=== PATIENT | male | born 1950 | race Caucasian/White ===

== ENCOUNTER 2018-02-19 08:36 | Emergency (ER) | payer MEDICARE ==
[~2018-02-19] VITALS: Ht 167.6 cm; Wt 72.6 kg
[~2018-02-19 08:36] MED LIST: Bactrim Ds Tab1 EACH PO; CEPH500 PO; Cleocin HCl300 MG PO; HYDACE5 PO; Percocet 5-3251 EACH PO; SULTRIDS PO
[2018-02-19] MEDS ORDERED: Amoxicillin500 MG PO (09:07)
[2018-02-19] MEDS ORDERED: IBUP800 PO (09:07)
== END 2018-02-19 09:55 | disposition home or self-care (01) ==
LOC: ER 08:36
DX: K04.7 Periapical abscess without sinus (principal); F17.200 Nicotine dependence, unspecified, uncomplicated
CPT/HCPCS: 96372; 96374; 99283-25; J0561; J1100

== ENCOUNTER 2018-02-23 14:18 | Emergency (ER) | payer MEDICARE ==
[~2018-02-23] VITALS: Ht 167.6 cm; Wt 68.0 kg
[~2018-02-23 14:18] MED LIST changes: +Amoxicillin500 MG PO; +IBUP800 PO
[2018-02-23] MEDS ORDERED: Percocet 5-3251 EACH PO (15:14)
[2018-02-23] MEDS ORDERED: TAMS.4ER PO (23:27)
[2018-02-23] MEDS ORDERED: METO50ER PO (23:27)
[2018-02-23] MEDS ORDERED: LEVSOD150 PO (23:27)
[2018-02-24] MEDS ORDERED: Cleocin HCl150 MG PO
[2018-02-24] MEDS ORDERED: CLINDAMYCI600 MG/51 IV (10:02)
== END 2018-02-23 15:43 | disposition home or self-care (01) ==
LOC: ER 14:18
DX: K04.7 Periapical abscess without sinus (principal); I10 Essential (primary) hypertension; E03.9 Hypothyroidism, unspecified; F17.200 Nicotine dependence, unspecified, uncomplicated
CPT/HCPCS: 96365; 96375; 99282-25; J1885

== ENCOUNTER 2018-02-23 22:48 | Emergency (ER) | payer MEDICARE ==
[~2018-02-23] VITALS: Ht 167.6 cm; Wt 72.1 kg
[2018-02-23] MEDS ORDERED: METO50ER PO (23:27)
[2018-02-23] MEDS ORDERED: TAMS.4ER PO (23:27)
[2018-02-23] MEDS ORDERED: LEVSOD150 PO (23:27)
[2018-02-24] MEDS ORDERED: Cleocin HCl150 MG PO
[2018-02-24] MEDS ORDERED: CLINDAMYCI600 MG/51 IV (10:02)
[2018-02-25] MEDS ORDERED: Cleocin HCl300 MG PO (00:01)
== END 2018-02-24 00:30 | disposition home or self-care (01) ==
LOC: ER 22:48
DX: K04.7 Periapical abscess without sinus (principal); I10 Essential (primary) hypertension; E03.9 Hypothyroidism, unspecified; F17.200 Nicotine dependence, unspecified, uncomplicated; Z79.899 Other long term (current) drug therapy

== ENCOUNTER 2018-02-24 08:26 | Day surgery (SDC) | payer MEDICARE ==
[~2018-02-24 08:26] MED LIST changes: +Cleocin HCl150 MG PO; +LEVSOD150 PO; +METO50ER PO; +TAMS.4ER PO
[2018-02-24] MEDS ORDERED: CLINDAMYCI600 MG/51 IV (10:02)
[2018-02-25] MEDS ORDERED: Cleocin HCl300 MG PO (00:01)
== END 2018-02-24 17:11 | disposition home or self-care (01) ==
LOC: ATC 08:26
DX: K04.7 Periapical abscess without sinus (principal); I10 Essential (primary) hypertension
CPT/HCPCS: 96365

== ENCOUNTER 2018-02-24 23:30 | Emergency (ER) | payer MEDICARE ==
[~2018-02-24] VITALS: Ht 167.6 cm; Wt 74.4 kg
[~2018-02-24 23:30] MED LIST changes: +CLINDAMYCI600 MG/51 IV
[2018-02-25] MEDS ORDERED: Cleocin HCl300 MG PO (00:01)
== END 2018-02-25 00:40 | disposition home or self-care (01) ==
LOC: ER 23:30
DX: K04.7 Periapical abscess without sinus (principal); Z79.2 Long term (current) use of antibiotics; Z79.899 Other long term (current) drug therapy; I10 Essential (primary) hypertension; E03.9 Hypothyroidism, unspecified; F17.200 Nicotine dependence, unspecified, uncomplicated
CPT/HCPCS: 96365; 99282-25

== ENCOUNTER 2018-02-25 00:06 | Day surgery (SDC) | payer MEDICARE | END 2018-02-25 16:24 | disposition home or self-care (01) | LOC: ATC 00:06 | DX: K04.7 Periapical abscess without sinus (principal); I10 Essential (primary) hypertension; F17.200 Nicotine dependence, unspecified, uncomplicated | CPT/HCPCS: 96365 ==

== ENCOUNTER 2018-02-25 23:32 | Emergency (ER) | payer MEDICARE ==
[~2018-02-25] VITALS: Ht 170.2 cm; Wt 74.4 kg
== END 2018-02-26 00:25 | disposition home or self-care (01) ==
LOC: ER 23:32
DX: K04.7 Periapical abscess without sinus (principal); L03.211 Cellulitis of face; Z79.2 Long term (current) use of antibiotics; Z79.899 Other long term (current) drug therapy; I10 Essential (primary) hypertension; E03.9 Hypothyroidism, unspecified; F17.200 Nicotine dependence, unspecified, uncomplicated
CPT/HCPCS: 96365; 99282-25

== ENCOUNTER 2018-02-26 23:35 | Emergency (ER) | payer MEDICARE ==
[~2018-02-26] VITALS: Ht 170.2 cm; Wt 74.4 kg
== END 2018-02-27 00:38 | disposition home or self-care (01) ==
LOC: ER 23:35
DX: K04.7 Periapical abscess without sinus (principal); L03.211 Cellulitis of face; Z76.0 Encounter for issue of repeat prescription; Z79.2 Long term (current) use of antibiotics; Z79.899 Other long term (current) drug therapy; I10 Essential (primary) hypertension; E03.9 Hypothyroidism, unspecified; F17.200 Nicotine dependence, unspecified, uncomplicated

== ENCOUNTER 2019-06-06 10:06 | Day surgery (SDC) | payer MEDICARE ==
[~2019-06-06] VITALS: Ht 167.6 cm; Wt 73.1 kg
[2019-06-06] MEDS ORDERED: Prinivil10 MG PO (10:18)
[2019-06-06] MEDS ORDERED: METO50ER PO (10:18)
[2019-06-06] MEDS ORDERED: LEVOXYL PO (10:19)
--- NOTE | 2019-06-06 10:36 | NUR ---
PT ADMITTED TO [facility]. AGREES WITH PLANNED PROCEDURE. LUNG SOUNDS CLEAR. STATES HE TOLERATED BOWEL PREP AND LAST BM CLEAR YELLOW.
--- NOTE | 2019-06-06 10:54 | NUR ---
PB ELEVATED THIS AM. DR. RASCON INFORMED. HE SPOKE WITH PT AND CANCELLED PROCEDURE TODAY. PT IS TO KEEP HIS FOLLOW UP APPOINTMENT WITH DR. RASCON AND STOP BY HIS PRIMARYS OFFICE TODAY REGARDING BP.
== END 2019-06-06 22:58 | disposition home or self-care (01) ==
LOC: ORSCMMR 10:06 → ORD 11:00 → ORSCMMR 22:58
DX: R19.5 Other fecal abnormalities (principal); Z53.9 Procedure and treatment not carried out, unspecified reason
CPT/HCPCS: J7120

== ENCOUNTER 2020-04-30 07:05 | Day surgery (SDC) | payer MEDICARE ==
[~2020-04-30] VITALS: Ht 167.6 cm; Wt 67.4 kg
[~2020-04-30 07:05] MED LIST changes: +Catapres0.2 MG PO; +LEVOXYL PO; +Prinivil10 MG PO
--- NOTE | 2020-04-30 08:06 | NUR ---
04/30/20 0805 Berkley Garcia History, Chart, Medications and Allergies reviewed before start of procedure. Patient confirms NPO status and agrees with scheduled surgery. PATIENT DETERMINED TO BE ASA APPROPRIATE FOR PROPOFOL SEDATION PRIOR TO START OF PROCEDURE BY DR. RASCON. 3-LEAD EKG REVIEWED WITH PHYSICIAN PRIOR TO START OF PROCEDURE. MONITOR INTACT WITH CONTINUOUS PULSE OXIMETRY AND INTERMITTENT BP.
--- NOTE | 2020-04-30 08:58 | NUR ---
PT TO STEP. DENIES C/O PAIN OR NAUSEA. REFUSES ANYTHING TO DRINK AT PRESENT TIME.
--- NOTE | 2020-04-30 09:05 | NUR ---
WRITTEN AND VERBAL D/C INSTUCTIONS GIVEN TO PT WITH STATED UNDERSTANDING.
== END 2020-04-30 09:18 | disposition home or self-care (01) ==
LOC: ORSCMMR 07:05 → ORD 08:00 → ORSCMMR 08:00
PROVIDERS: Internal Medicine Gastroenterology
PROC: 0DBL8ZX Excision of Transverse Colon, Via Natural or Artificial Opening Endoscopic, Diagnostic (ICD-10-PCS; principal; 2020-04-30 08:00)
PROC: 0DBN8ZX Excision of Sigmoid Colon, Via Natural or Artificial Opening Endoscopic, Diagnostic (ICD-10-PCS; principal; 2020-04-30 08:00)
PROC: 0DBM8ZX Excision of Descending Colon, Via Natural or Artificial Opening Endoscopic, Diagnostic (ICD-10-PCS; principal; 2020-04-30 08:00)
DX: R19.5 Other fecal abnormalities (principal); D12.3 Benign neoplasm of transverse colon; D12.0 Benign neoplasm of cecum; D12.4 Benign neoplasm of descending colon; K63.5 Polyp of colon; Z80.0 Family history of malignant neoplasm of digestive organs; I10 Essential (primary) hypertension; E03.9 Hypothyroidism, unspecified; Z79.899 Other long term (current) drug therapy
CPT/HCPCS: 88305; J2704; J7120

== ENCOUNTER 2020-05-17 09:19 | Emergency (ER) | payer MEDICARE | END 2020-05-17 13:54 | disposition home or self-care (01) | LOC: ER 09:19 | DX: N39.0 Urinary tract infection, site not specified (principal); I10 Essential (primary) hypertension; E03.9 Hypothyroidism, unspecified; Z79.899 Other long term (current) drug therapy ==

== ENCOUNTER → 2020-06-28 | Outpatient (CLI) | payer MEDICARE ==
[~2020-06-28] MED LIST changes: +Cipro500 MG PO
[2020-06-28 18:35] LABS: Protein, Urine Quantitative 13.7 mg/dL (0.0-11.9)
[2020-06-28 18:37] LABS: Microalbumin, Urine Quant. 12.1 mg/L (0.000-20.000)
== END | disposition home or self-care (01) ==
LOC: LAB 07:15 → LAB SHORT 07:15
PROVIDERS: Internal Medicine Nephrology
DX: N18.30 Chronic kidney disease, stage 3 unspecified (principal); D63.1 Anemia in chronic kidney disease; R76.9 Abnormal immunological finding in serum, unspecified; R94.5 Abnormal results of liver function studies; G60.9 Hereditary and idiopathic neuropathy, unspecified; N25.81 Secondary hyperparathyroidism of renal origin; E55.9 Vitamin D deficiency, unspecified; E78.00 Pure hypercholesterolemia, unspecified; N40.1 Benign prostatic hyperplasia with lower urinary tract symptoms
CPT/HCPCS: 81050; 82043; 82570; 84156

== ENCOUNTER 2020-10-30 07:45 | Day surgery (SDC) | payer MEDICARE ==
[~2020-10-30] VITALS: Ht 165.1 cm; Wt 61.0 kg
[~2020-10-30 07:45] MED LIST changes: +ASPI81CH PO; +LEVOTHYROXINE100 MC2 PO; -LEVOXYL PO; +LOSA50 PO; -Prinivil10 MG PO; +ZESTRIL40 M1 PO
[2020-10-30] MEDS ORDERED: ATORVASTATIN CA40 M1 PO (08:29)
[2020-10-30 09:01] LABS: BASOPHILS ABSOLUTE AUTO 0.06 K/mm3 (0.00-0.23); BASOPHILS PERCENT AUTO 1 % (0-2); EOSINOPHILS ABSOLUTE AUTO 0.27 K/mm3 (0.00-0.68); EOSINOPHILS PERCENT AUTO 3 % (0-6); Hematocrit 40.5 % (37.0-53.0); Hemoglobin 13.9 g/dL (13.5-17.5); IMMATURE GRAN ABSOLUTE AUTO 0.03 K/mm3 (0.00-0.10); IMMATURE GRAN PERCENT AUTO 0 % (0-1); LYMPHOCYTES ABSOLUTE AUTO 1.87 K/mm3 (0.84-5.20); LYMPHOCYTES PERCENT AUTO 20 % (21-46); MONOCYTES ABSOLUTE AUTO 0.71 K/mm3 (0.16-1.47); MONOCYTES PERCENT AUTO 8 % (4-13); Mean Corpuscular HGB 29.8 pg (26.0-34.0); Mean Corpuscular HGB Conc 34.3 g/dL (31.5-36.5); Mean Corpuscular Volume 87 fL (80-100); Mean Platelet Volume 10.1 fL (9.1-12.4); NEUTROPHILS ABSOLUTE AUTO 6.39 K/mm3 (1.96-9.15); NEUTROPHILS PERCENT AUTO 69 % (41-73); Platelet Count 212 K/mm3 (150-400); RDW Coefficient Variation 13.3 % (11.7-14.2); RDW Standard Deviation 41.6 fL (35.1-46.3); Red Blood Cell Count 4.67 M/mm3 (4.30-5.90); White Blood Cell Count 9.33 K/mm3 (4.00-11.30)
[2020-10-30 09:13] LABS: International Normalized Ratio 1.02; Prothrombin Time Results 10.9 Sec (9.7-11.5)
[2020-10-30 09:18] LABS: Anion Gap 5 mmol/L (6-16); Blood Urea Nitrogen 13 mg/dL (8-24); Bun/Creatinine Ratio 14.3 (12.0-20.0); CO2, Blood 26 mmol/L (21-32); Calcium, Blood 8.6 mg/dL (8.5-10.1); Chloride, Blood 107 mmol/L (98-108); Creatinine, Blood 0.91 mg/dL (0.60-1.20); Glomerular Filtration Rate >60 (60-); Glucose, Blood 93 mg/dL (70-99); Sodium, Blood 138 mmol/L (136-145)
--- NOTE | 2020-10-30 13:16 | NUR ---
PT C/O ABDOMINAL DISCOMFORT; ALONG WITH LOWER/MID BACK PAIN. NO BLEEDING NOTED AT R FEMORAL SITE. TENDER TO THE TOUCH.
--- NOTE | 2020-10-30 13:22 | NUR ---
DR GOLDSTEIN TO ROOM FOR ASSESSMENT. WILL CONTINUE TO MONITOR. NEW ORDERS IN PLACE FOR HYPERTENSION.
--- NOTE | 2020-10-30 13:31 | NUR ---
PT MEDICATED WITH LABETALOL 10 MG IVP, TOLERATES WELL. WILL CONTINUE TO MONITOR VITALS AND FEMORAL SITE/ R RADIAL
--- NOTE | 2020-10-30 14:31 | NUR ---
PT REPORTS "LESS PAIN AT R FEMORAL SITE. SITE REMAINS STABLE. NO BLEEDING NOTED. 2CC OF AIR REMOVED FROM R RADIAL TR BAND. TOLERATES WELL. NO BLEEDING NOTED. VSS. CONTINUE TO MONITOR. CALL LIGHT WITHIN REACH.
--- NOTE | 2020-10-30 15:13 | NUR ---
PT REPORTS NAUSEA. PER DR GOLDSTEIN, PT GIVEN ZOFRAN 4MG IVP. TOLERATES WELL. PT GIVEN CRACKERS AND TOLERATING WELL. ALL ACCESS SITES REMAIN CLEAR. R RADIAL TR BAND FULLY DEFLATED. NO BLEEDING NOTED. CALL LIGHT WITHIN REACH.
--- NOTE | 2020-10-30 15:48 | NUR ---
PT MEDICATED WITH LABETOLOL PER DR GOLDSTEIN. ADVISED TO TAKE BP MEDICATIONS WHEN HE GETS HOME. PT ASSISTED UP FROM [facility], TOLERATES WELL. PT AMBULATES AROUND ROOM. SITES REMAIN CLEAR. NO BLEEDING OR HEMATOMA NOTED. PT REPORTS, "THAT FEELS BETTER NOW THAT I'M UPRIGHT"
--- NOTE | 2020-10-30 16:04 | NUR ---
PT DRESSES SELF WITH MINIMAL ASSISTANCE. R RADIAL TR BAND REMOVED. DOT DRESSING IN PLACE WITH SPLINT AND SLING. NO SWELLING OR HEMATOMA NOTED. PT AMBULATES TO RESTROOM WITHOUT DIFF. R FEM SITE REMAINS STABLE. PT VERABLIZES UNDERSTANDING WRITTEN AND VERBAL ORDERS. PT IV DC'D. CATH INTACT. PRESSURE DSG APPLIED. PT DC TO HOME VIA WC BY MOTHER.
== END 2020-10-30 16:00 | disposition home or self-care (01) ==
LOC: MHTC 07:45
PROVIDERS: Radiology Diagnostic Radiology
DX: I70.213 Atherosclerosis of native arteries of extremities with intermittent claudication, bilateral legs (principal); I10 Essential (primary) hypertension; E78.5 Hyperlipidemia, unspecified; I25.10 Atherosclerotic heart disease of native coronary artery without angina pectoris; B35.1 Tinea unguium; F17.210 Nicotine dependence, cigarettes, uncomplicated; Z79.82 Long term (current) use of aspirin
CPT/HCPCS: 37221; 37223; 37246; 75625; 75774; 76937; 80048; 85025; 85347; 85610; 99152; 99153; A9270; C1760; C1769; C1874; C1876; C1887; C1894; J0360; J1644; J2250; J2405; J3010; J7030; J7050; Q9967